=== PATIENT | male | born 1940 | race African-American/Black ===

== ENCOUNTER 2018-05-09 18:52 | Inpatient (IN) | payer MEDICARE, MEDICAID ==
[~2018-05-09] VITALS: Ht 167.6 cm; Wt 44.2 kg
[2018-05-09] MEDS ORDERED: KETOROLAC 30MG/ML VIAL IV STA (22:06)
[2018-05-09] MEDS ORDERED: ONDANSETRON HCL 4MG/2ML INJ IV STA (22:06)
[2018-05-09] MEDS ORDERED: CEFTRIAXONE 1 G PREMIX 50 ML IV ONE (22:15)
[2018-05-09] MEDS ORDERED: SODIUM CHLORIDE 0.9% 1000ML BAG (SEPSIS BOLUS) IV ONE (22:15)
[2018-05-09 23:28] LABS: HEMATOCRIT. 24.4 % (42.0-52.0); HEMOGLOBIN. 7.9 g/dL (14.0-18.0); MEAN CORPUSCULAR HEMOGLOBIN 27.9 pg (28.0-32.0); MEAN CORPUSCULAR VOLUME 86.4 fL (80.0-94.0); MEAN PLATELET VOLUME 6.5 fl (7.4-10.4); PLATELET 269 x1000/uL (130-400); RED BLOOD CELL COUNT 2.82 mill/uL (4.7-6.1); RED CELL DISTRIBUTION WIDTH 20.3 % (11.6-14.6)
[2018-05-09 23:33] LABS: CHLORIDE 109 mEq/L (98-107)
[2018-05-09 23:34] LABS: INR 1.4; PROTHROMBIN TIME 13.8 sec (9.1-11.1)
[2018-05-10 00:43] LABS: CLARITY URINE CLOUDY (CLEAR); KETONES URINE 1+ (NEGATIVE); LEUKOCYTE ESTERASE URINE 1+ (NEGATIVE); NITRITE URINE POSITIVE (NEGATIVE); OCCULT BLOOD URINE 3+ (NEGATIVE); PH URINE 5.5 (4.5-8.0); PROTEIN URINE 1+ (NEGATIVE); SPECIFIC GRAVITY URINE 1.021 (1.005-1.030)
[2018-05-10 00:47] LABS: COLOR URINE BROWN (YELLOW)
[2018-05-10 02:09] LABS: ATYPICAL LYMPHOCYTES 1; NUCLEATED RED BLOOD CELLS 4 /100 WBC
[2018-05-10 02:10] LABS: PLATELET ESTIMATE NORMAL
[2018-05-10] MEDS ORDERED: IOHEXOL-300 100 ML BOTTLE ONE (05:45)
[2018-05-10] MEDS ORDERED: DOCU-150 MT (18:58)
[2018-05-10] MEDS ORDERED: CHOL50004 MT (18:58)
[2018-05-10] MEDS ORDERED: FAMO20TA8 MT (18:58)
[2018-05-10] MEDS ORDERED: ATOR20TA65 PO (18:58)
[2018-05-10] MEDS ORDERED: MIRT30TA7 MT (18:58)
[2018-05-10] MEDS ORDERED: MELO-106 MT (18:58)
[2018-05-10] MEDS ORDERED: MORPHINE SULFATE 15MG TABLET SR PO PRN (19:45)
[2018-05-10] MEDS ORDERED: AMLODIPINE 10MG TABLET PO SCH (19:45)
[2018-05-10 20:00] VITALS: BP 128/68
[2018-05-10] MEDS ORDERED: TRAMADOL 50MG TABLET PO PRN (20:00)
[2018-05-10] MEDS ORDERED: HYDROCODONE/ACETAMINOPHEN 10/325MG TABLET PO PRN (20:00)
[2018-05-10] MEDS ORDERED: MIRTAZAPINE 30MG TABLET PO SCH (21:00)
[2018-05-10] MEDS ORDERED: ATORVASTATIN CALCIUM 20MG TABLET PO SCH (21:00)
[2018-05-10] MEDS: MELOXICAM 7.5MG TABLET PO SCH (21:50)
[2018-05-10] MEDS: DEXT 5%/0.45% NACL 1000ML 1,000 ML IV SCH (21:55)
[2018-05-11] VITALS: BP 117/70
[2018-05-11 00:22] LABS: CHLORIDE 107 mEq/L (98-107)
[2018-05-11 04:00] VITALS: BP 126/58
[2018-05-11] MEDS: DEXT 5%/0.45% NACL 1000ML 1,000 ML IV SCH (06:16)
[2018-05-11 06:53] LABS: BASOPHILS % 0.1 % (0.0-2.0); EOSINOPHILS % 0.1 % (0.0-5.0); HEMATOCRIT. 23.3 % (42.0-52.0); HEMOGLOBIN. 7.6 g/dL (14.0-18.0); MEAN CORPUSCULAR HEMOGLOBIN 27.9 pg (28.0-32.0); MEAN PLATELET VOLUME 6.9 fl (7.4-10.4); MONOCYTES % 5.5 % (2.0-8.0); NEUTROPHILS % 69.3 % (40.0-76.0); PLATELET 265 x1000/uL (130-400); RED BLOOD CELL COUNT 2.71 mill/uL (4.7-6.1); RED CELL DISTRIBUTION WIDTH 21.5 % (11.6-14.6)
[2018-05-11 08:00] VITALS: BP 110/57
[2018-05-11] MEDS ORDERED: PANTOPRAZOLE 40MG DR TABLET PO SCH (09:00)
[2018-05-11] MEDS ORDERED: ENOXAPARIN 40MG/0.4ML SYR SUBCUT SCH ×2 (09:00→13:30)
[2018-05-11] MEDS: MELOXICAM 7.5MG TABLET PO SCH (09:00)
[2018-05-11] MEDS ORDERED: CHOLECALCIFEROL (D3) 1000 UNIT TABLET PO SCH (09:00)
[2018-05-11] MEDS ORDERED: DOCUSATE SODIUM 100MG CAPSULE PO SCH (09:00)
[2018-05-11] MEDS ORDERED: VANCOMYCIN 1 G PREMIX 200 ML IV NR (10:00)
[2018-05-11] MEDS ORDERED: PIPERACILLIN/TAZ 3.375G PREMIX 50 ML IV SCH (11:00)
[2018-05-11 12:00] VITALS: BP 113/58
[2018-05-11] MEDS ORDERED: MORPHINE SULFATE 15MG TABLET SR PO PRN (13:15)
[2018-05-11] MEDS ORDERED: MORPHINE SULFATE 15MG TABLET SR PO SCH (13:30)
[2018-05-11 15:18] VITALS: BP 113/58
[2018-05-11 16:00] VITALS: BP 116/52
[2018-05-11] MEDS ORDERED: TRAMADOL 50MG TABLET PO SCH (17:00)
[2018-05-11] MEDS ORDERED: VANCOMYCIN 500 MG PREMIX 100 ML IV SCH (22:00)
== END 2018-05-11 17:15 | disposition short-term general hospital (02) | DRG 871 ==
LOC: ER 18:52 → 8WST 05-10 00:44 → EDBEDREQ 05-10 00:46 → ENRESERV 05-10 08:24 → CANRESERV 05-10 08:24 → EDBEDREQSVC 05-10 09:25 → ENRESERV 05-10 16:31
PROVIDERS: ADMIT Internal Medicine Pulmonary Disease; ATTEND Internal Medicine Pulmonary Disease
DX: A41.9 Sepsis, unspecified organism (principal); E43 Unspecified severe protein-calorie malnutrition; N39.0 Urinary tract infection, site not specified; Z68.1 Body mass index [BMI] 19.9 or less, adult; C61 Malignant neoplasm of prostate; D49.4 Neoplasm of unspecified behavior of bladder; E78.5 Hyperlipidemia, unspecified; G89.3 Neoplasm related pain (acute) (chronic); N32.0 Bladder-neck obstruction; E86.0 Dehydration; R13.10 Dysphagia, unspecified; R65.20 Severe sepsis without septic shock; Z85.07 Personal history of malignant neoplasm of pancreas; Z87.891 Personal history of nicotine dependence
CPT/HCPCS: 36415; 71045; 71250; 74177; 82270; 83605; 84145; 84484; 86850; 86900; 86920; 93005; 96374; 99285; J0696; J1650; J1885; J2405; J2543; J3370; J7030; J7040; Q9967; A4315